=== PATIENT | male | born 1985 | race Asian ===

== ENCOUNTER 2023-03-17 13:31 | Outpatient (CLI) | payer OTHER, SELFPAY | END 2023-03-17 13:32 | disposition home or self-care (01) | PROVIDERS: Visit Provider Emergency Medicine | DX: S19.9XXA Unspecified injury of neck, initial encounter (principal); V43.53XA Car driver injured in collision with pick-up truck in traffic accident, initial encounter; Y92.410 Unspecified street and highway as the place of occurrence of the external cause | CPT/HCPCS: A0998 ==